=== PATIENT | male | born 1980 | race Caucasian/White ===

== ENCOUNTER 2016-05-20 11:47 | Emergency (ER) | payer SELFPAY ==
[~2016-05-20] VITALS: Ht 182.9 cm; Wt 100.0 kg
[~2016-05-20 11:47] MED LIST: AUGM875T PO; IBUP800T23 PO
[2016-05-20 11:50] VITALS: BP 156/80; PULSE 84; RESP 12; TEMP 98.3; O2SAT 97
--- NOTE | 2016-05-20 12:39 | PD ---
HPI Chief Complaint: Skin Problem Time Seen by Provider: 12:38 Travel History International Travel<30 days: No Contact w/Intl Traveler<30days: No Traveled to known affect area: No History of Present Illness HPI 35-year-old male with PMH of GERD and anxiety presents to the ED for evaluation of 3 day history of warm, erythematous, swollen bump on the anterior neck. Gradual onset. Patient states that he applied warm compresses, poked the area with a needle with no improvement of symptoms. Denies previous history of abscess or IVDA. Denies fevers, chills. Denies chronic health problems. Takes no daily medications. NKDA. PFSH Past Medical History Autoimmune Disease: No Blood Disorders: No Anxiety: Yes Cancer: No Cardiovascular Problems: No Chemotherapy: No Diminished Hearing: No Endocrine: No Gastrointestinal Disorders: Yes (HX GALLSTONES) GERD: Yes Genitourinary: No Immune Disorder: No Musculoskeletal: Yes (previous left knee injury ) Neurologic: No Psychiatric: No Reproductive: No Respiratory: No Immunizations Current: Yes Pancreatitis: Yes Seizures: Yes Tetanus Vaccination: < 5 Years Influenza Vaccination: No Past Surgical History Abdominal Surgery: Yes (CHOLECYSTECTOMY ) AICD: No Arteriovenous Shunt: No Cholecystectomy: Yes Insulin Pump: No Joint Replacement: No Pacemaker: No Other Surgery: Yes Social History Alcohol Use: No Tobacco Use: No Substance Use: Yes (MARIJUANA) Allergies-Medications (Allergen,Severity, Reaction): Coded Allergies: No Known Allergies (Verified , 05/20/16) Reported Meds & Prescriptions Reported Meds & Active Scripts Active Keflex (Cephalexin) 500 Mg Cap 500 Mg PO Q6H Bactrim DS (Sulfamethoxazole-Trimethoprim) 800-160 Mg Tab 1 Tab PO BID Review of Systems Except as stated in HPI: all other systems reviewed are Neg Physical Exam Narrative GENERAL: Well-nourished, well-developed white male in no acute distress. SKIN: Warm and dry. Multiple tattoos. SKIN: There is an indurated area in the left medial collarbone which measures about 2 cm in diameter. It is fluctuant but there is no pointing or drainage. There is a zone of inflammation around it but no lymphangitis. HEAD: Normocephalic. EYES: No scleral icterus. No injection or drainage. NECK: Supple, trachea midline. No JVD or lymphadenopathy. CARDIOVASCULAR: Regular rate and rhythm without murmurs, gallops, or rubs. RESPIRATORY: Breath sounds equal bilaterally. No accessory muscle use. GASTROINTESTINAL: Abdomen soft, non-tender, nondistended. MUSCULOSKELETAL: No cyanosis, or edema. BACK: Nontender without obvious deformity. No CVA tenderness. Data Data Last Documented VS Vital Signs Date Time Temp Pulse Resp B/P Pulse Ox O2 Delivery O2 Flow Rate FiO2 05/20/16 11:50 98.3 84 12 156/80 97 Room Air Orders Wound Culture And Gram Stain (05/20/16 12:43) Lidocai-Epi 1%-1:100,000 Inj (Xylocaine- (05/20/16 12:45) Tetanus/Diphtheria Tox Adult (Tetanus/Di (05/20/16 12:45) MDM Medical Decision Making Medical Screen Exam Complete: Yes Emergency Medical Condition: Yes Differential Diagnosis Furuncle versus carbuncle versus abscess versus cellulitis versus other Narrative Course 35-year-old male with PMH of GERD and anxiety presents to the ED for evaluation of 3 day history of warm, erythematous, swollen bump on the anterior neck. Gradual onset. Patient states that he applied warm compresses, poked the area with a needle with no improvement of symptoms. Denies previous history of abscess or IVDA. Denies fevers, chills. Vitals reviewed. Physical exam reveals a nontoxic-appearing white male in no acute distress. Multiple tattoos. There is a abscess over the medial left clavicle. Mildly fluctuant. No drainage. Abscess I&D was performed. Please see my procedure note for details. Tetanus immunization was updated. Patient was provided prescriptions for Bactrim and Keflex. We discussed wound care, reasons to return to the ED. He indicated understanding of the instructions, is amenable to plan of care. He stable and discharged home. Procedures Procedure Narrative INCISION AND DRAINAGE OF ABSCESS: The area was prepped and was sterilely draped. A subcutaneous wheal of 1 % Xylocaine with epinephrine with a total number to mL was used to anesthetize the area properly. A number 11 scalpel was used to make a 1-cm incision across the area of the abscess. The abscess was drained, complex loculations were broken down, and irrigated with normal saline. Cultures were obtained. Sterile dressing applied. Patient advised to have packing removed in two days. Diagnosis Primary Impression: Abscess Referrals: Primary Care Physician Patient Instructions: Abscess Incision and Drainage (ED), General Instructions Additional Instructions: Rest, hydrate. Keep the dressing that was applied today for the next 24 hours. After that wash the wound normally, allow to air dry before reapplying a clean, dry dressing. Take all antibiotic as prescribed, even if symptoms resolve. Pktc-pod-catorft anti-inflammatories as needed. Follow-up with primary care provider in one week. Return to the ED for any urgent or emergent medical condition. Med/Other Pt SpecificInfo: Prescription(s) given Scripts Cephalexin (Keflex)500 Mg [id number] Mg PO Q6H #40 CAP Ref 0 Prov:Matt Lopez MD 05/20/16 Sulfamethoxazole-Trimethoprim (Bactrim DS)800-160 Mg Tab1 Tab PO BID #14 TAB Ref 0 Prov:Matt Lopez MD 05/20/16 Disposition: 01 DISCHARGE HOME Condition: Stable Aleksandra Werner May 20, 2016 12:39
[2016-05-20] MEDS ORDERED: LIDOCAINE 1%/EPINEPHrine 1:100,000 SOLN 20 ML VIAL INFIL ONE (12:45)
[2016-05-20] MEDS ORDERED: TETANUS/DIPHTHERIA TOXOID ADULT 0.5 ML VIAL IM ONE (12:45)
[2016-05-20] MEDS ORDERED: CEPH-460 PO (13:27)
[2016-05-20] MEDS ORDERED: BACT800T5 PO (13:27)
== END 2016-05-20 13:49 | disposition home or self-care (01) ==
LOC: NETRI 11:47
DX: L02.11 Cutaneous abscess of neck (principal); B95.62 Methicillin resistant Staphylococcus aureus infection as the cause of diseases classified elsewhere; Z23 Encounter for immunization
CPT/HCPCS: 10060; 86403; 87070; 87186; 87205; 90471; 90714

== ENCOUNTER 2017-04-28 20:28 | Emergency (ER) | payer SELFPAY ==
[~2017-04-28] VITALS: Ht 182.9 cm; Wt 91.0 kg
[~2017-04-28 20:28] MED LIST changes: -AUGM875T PO; +BACT800T5 PO; +CEPH-460 PO; -IBUP800T23 PO
[2017-04-28 20:30] VITALS: BP_SYST 159; PULSE 78; RESP 16; TEMP 97.8; O2SAT 98
--- NOTE | 2017-04-28 22:06 | PD ---
HPI Chief Complaint: ENT Complaint Time Seen by Provider: 21:48 Travel History International Travel<30 days: No Contact w/Intl Traveler<30days: No Traveled to known affect area: No History of Present Illness HPI Patient is a 36 year old male who comes in complaining of nasal congestion, ear pressure, cough for about a month. He says he thought he was getting better, but last night he developed a sore throat and his symptoms seemed to return. 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 He denies fever or chills. He has tried over the counter medications with minimal relief. He denies SOB or chest pain. PFSH Past Medical History Autoimmune Disease: No Blood Disorders: No Anxiety: Yes Cancer: No Cardiovascular Problems: No Chemotherapy: No Diminished Hearing: No Endocrine: No Gastrointestinal Disorders: Yes (HX GALLSTONES) GERD: Yes Genitourinary: No Immune Disorder: No Musculoskeletal: Yes (previous left knee injury ) Neurologic: No Psychiatric: No Reproductive: No Respiratory: No Immunizations Current: Yes Pancreatitis: Yes Seizures: Yes Past Surgical History Abdominal Surgery: Yes (CHOLECYSTECTOMY ) AICD: No Arteriovenous Shunt: No Cholecystectomy: Yes Insulin Pump: No Joint Replacement: No Pacemaker: No Other Surgery: Yes Social History Alcohol Use: No Tobacco Use: No Substance Use: Yes (MARIJUANA) Allergies-Medications (Allergen,Severity, Reaction): Coded Allergies: No Known Allergies (Verified Adverse Reaction, Unknown, 04/28/17) Reported Meds & Prescriptions Reported Meds & Active Scripts Active Keflex (Cephalexin) 500 Mg Cap 500 Mg PO Q6H Bactrim DS (Sulfamethoxazole-Trimethoprim) 800-160 Mg Tab 1 Tab PO BID Review of Systems General / Constitutional: No: Fever, Chills HENT: Positive: Headaches, Sore Throat, Congestion Cardiovascular: No: Chest Pain or Discomfort Respiratory: Positive: Cough, No: Shortness of Breath Gastrointestinal: No: Nausea, Vomiting Musculoskeletal: No: Myalgias, Edema Skin: No Rash, No Hives, No Change in Pigmentation Neurologic: No: Weakness, Dizziness Physical Exam Narrative GENERAL: Awake and alert, in no acute distress. SKIN: Focused skin assessment warm/dry. No wounds. HEAD: Atraumatic. Normocephalic. EYES: Pupils equal and round. No scleral icterus. ENT: No tonsillar enlargement or exudates. Mucous membranes pink and moist. Cerumen present in both ear canals. CARDIOVASCULAR: Regular rate and rhythm. No murmur appreciated. RESPIRATORY: No accessory muscle use. Clear to auscultation. Breath sounds equal bilaterally. MUSCULOSKELETAL: No obvious deformities. No clubbing. No cyanosis. No edema. NEUROLOGICAL: Awake and alert. No obvious cranial nerve deficits. Motor grossly within normal limits. Normal speech. Data Data Last Documented VS Vital Signs Date Time Temp Pulse Resp B/P (MAP) Pulse Ox O2 Delivery O2 Flow Rate FiO2 04/28/17 21:57 04/28/17 20:30 97.8 78 16 98 Room Air MDM Medical Decision Making Medical Screen Exam Complete: Yes Emergency Medical Condition: Yes Medical Record Reviewed: Yes Differential Diagnosis Influenza vs pneumonia vs URI vs seasonal allergies Narrative Course Patient is a 36-year-old male who comes in complaining of congestion, sore throat, head pressure. Exam shows cerumen in both ears, no acute abnormalities. Patient offered testing, but he says he does not want to wait. I advised that I cannot make sure that he does not have a serious illness without doing some imaging and tests. He says that he will try over-the- counter allergy and decongestant medications and return if needed. Diagnosis Primary Impression: Upper respiratory infection Patient Instructions: Upper Respiratory Infection (ED) Additional Instructions: Try over the counter decongestants, either Claritin D or Zyrtec D. Use Debrox for ear wax removal. Follow up with a primary care doctor. Return to the ED as needed for any worsening symptoms. Disposition: 01 DISCHARGE HOME Condition: Stable Tanisha Oliver MD Apr 28, 2017 22:06
== END 2017-04-28 22:36 | disposition home or self-care (01) ==
LOC: NEPD 20:28
DX: J06.9 Acute upper respiratory infection, unspecified (principal); H61.23 Impacted cerumen, bilateral; R51 Headache; F41.9 Anxiety disorder, unspecified; K21.9 Gastro-esophageal reflux disease without esophagitis; R56.9 Unspecified convulsions; Z87.19 Personal history of other diseases of the digestive system
CPT/HCPCS: 99282

== ENCOUNTER 2017-05-11 19:43 | Emergency (ER) | payer SELFPAY ==
[~2017-05-11] VITALS: Ht 182.9 cm; Wt 88.5 kg
[2017-05-11 20:12] VITALS: BP 135/82; PULSE 80; RESP 16; TEMP 98.8; O2SAT 97
[2017-05-12] MEDS ORDERED: ROBA500T PO (13:40)
[2017-05-12] MEDS ORDERED: IBUP1TAB7 PO (13:40)
[2017-06-13] MEDS ORDERED: HYDR-3288 PO (07:00)
== END 2017-05-11 20:56 | disposition left against medical advice (07) ==
LOC: PHED 19:43 → PHEFT 20:56
DX: Z53.21 Procedure and treatment not carried out due to patient leaving prior to being seen by health care provider (principal)
CPT/HCPCS: 99281

== ENCOUNTER 2017-05-12 13:01 | Emergency (ER) | payer SELFPAY ==
[2017-05-12 13:03] VITALS: BP 136/97; PULSE 80; RESP 16; O2SAT 100
--- NOTE | 2017-05-12 13:19 | PD ---
HPI Chief Complaint: Injury Time Seen by Provider: 13:08 Travel History International Travel<30 days: No Contact w/Intl Traveler<30days: No Traveled to known affect area: No History of Present Illness HPI 36-year-old male presents to the emergency department with complaint of pain from his right arm mid biceps area to his mid forearm area since last night after injuring it while doing jujitsu. He said he heard a "snap." He doesn't know if he tore a muscle or possibly broke a bone. Denies paresthesias, loss of sensation, decreased range of motion of the arm. Reports decreased strength. Pain is worse with rotation at the wrist and complete extension. Has not taken any medication or tried any treatments to relieve his symptoms. Rates pain 10. Describes it as an aching sensation. No known allergies. No primary care provider. Has no other medical complaints. No other modifying factors or associated signs and symptoms. PFSH Past Medical History Autoimmune Disease: No Blood Disorders: No Anxiety: Yes Cancer: No Cardiovascular Problems: No Chemotherapy: No Diminished Hearing: No Endocrine: No Gastrointestinal Disorders: Yes (HX GALLSTONES) GERD: Yes Genitourinary: No Immune Disorder: No Musculoskeletal: Yes (previous left knee injury ) Neurologic: No Psychiatric: No Reproductive: No Respiratory: No Immunizations Current: Yes Pancreatitis: Yes Seizures: Yes Past Surgical History Abdominal Surgery: Yes (CHOLECYSTECTOMY ) AICD: No Arteriovenous Shunt: No Cholecystectomy: Yes Insulin Pump: No Joint Replacement: No Pacemaker: No Other Surgery: Yes Social History Alcohol Use: No Tobacco Use: No Substance Use: Yes (MARIJUANA) Allergies-Medications (Allergen,Severity, Reaction): Coded Allergies: No Known Allergies (Verified Adverse Reaction, Unknown, 05/12/17) Reported Meds & Prescriptions Reported Meds & Active Scripts Active Robaxin (Methocarbamol) 500 Mg Tab 500 Mg PO QID PRN Ibuprofen 800 Mg Tab 800 Mg PO Q6HR PRN Review of Systems Except as stated in HPI: all other systems reviewed are Neg Physical Exam Narrative GENERAL: Well-nourished, well-developed male patient, in no acute distress SKIN: Warm and dry. HEAD: Atraumatic. Normocephalic. EYES: Pupils equal and round. No scleral icterus. No injection or drainage. ENT: Mucosa pink and moist. Airway patent. NECK: Trachea midline. CARDIOVASCULAR: Regular rate. RESPIRATORY: No accessory muscle use. GASTROINTESTINAL: Flat. MUSCULOSKELETAL: Right ice this area appears with a bulge, when compared to the left; biceps area, antecubital area, and proximal forearm are with tenderness on palpation; decreased community outreach manager strength compared to the left; full flexion and extension; without erythema, ecchymosis; minimal edema noted to the right proximal forearm area.. Right upper extremity supple and non-tense with 2 + radial pulse and sensory intact and without erythema. No obvious deformities. No clubbing. No cyanosis. No edema. NEUROLOGICAL: Awake and alert. Oriented 3. No obvious cranial nerve deficits. Motor grossly within normal limits. Normal speech. PSYCHIATRIC: Appropriate mood and affect; insight and judgment normal. Data Data Last Documented VS Vital Signs Date Time Temp Pulse Resp B/P (MAP) Pulse Ox O2 Delivery O2 Flow Rate FiO2 05/12/17 13:03 80 16 136/97 (110) 100 Orders Orders Elbow, Complete (4 Vws) (05/12/17 13:17) Ketorolac Inj (Toradol Inj) (05/12/17 13:30) Orphenadrine Inj (Norflex Inj) (05/12/17 13:30) MDM Medical Decision Making Medical Screen Exam Complete: Yes Emergency Medical Condition: Yes Medical Record Reviewed: Yes Differential Diagnosis Biceps tendon tear, fracture, arm strain Narrative Course 36-year-old male with right arm injury. Suspecting possible biceps tendon tear. I will x-ray the arm to rule out acute findings. Mandatory outpatient referral will be ordered for outpatient follow-up. Toradol and Norflex ordered. Right elbow x-ray ordered. 1345: Right elbow x-ray unremarkable. Patient provided a copy of the x-ray report. Ibuprofen and Robaxin prescribed for home. Mandatory outpatient referral ordered. Instructed Patient to follow up with orthopedic surgeon. Instructed patient to follow up with primary care provider. Patient verbalizes understanding and agreement with treatment plan. Patient is medically cleared and stable for discharge. Discussed reasons to return to the emergency department. Patient agrees with treatment plan. The patients vital signs are stable and the patient is stable for outpatient follow-up and treatment. Patient discharged home, stable and in no acute distress. Diagnosis Primary Impression: Injury of right upper arm Qualified Codes: S49.91XA - Unspecified injury of right shoulder and upper arm , initial encounter Referrals: [facility] Orthopaedic Surgeon Primary Care Physician Patient Instructions: General Instructions Additional Instructions: Ibuprofen or Tylenol as instructed and as needed for pain and information Rest and ice the affected extremity Avoid aggravating activity; increase activity as tolerated Follow-up with orthopedics Follow-up with primary care provider Return to the emergency department immediately with worsening of symptoms Med/Other Pt SpecificInfo: Prescription(s) given Scripts Methocarbamol (Robaxin) 500 Mg Tab 500 MG PO QID Y for MUSCLE SPASM, #30 TAB 0 Refills Prov: Tiffanie Omer 05/12/17 Ibuprofen (Ibuprofen) 800 Mg Tab 800 MG PO Q6HR Y for PAIN, #30 TAB 0 Refills Prov: Tiffanie Omer 05/12/17 Disposition: 01 DISCHARGE HOME Condition: Stable Tiffanie Omer May 12, 2017 13:19
[2017-05-12] MEDS ORDERED: ORPHENADRINE INJ 60 MG/2 ML AMP IM ONE (13:30)
[2017-05-12] MEDS ORDERED: KETOROLAC TROMETHAMINE 60 MG/2 ML (IM) VIAL IM ONE (13:30)
[2017-05-12] MEDS ORDERED: ROBA500T PO (13:40)
[2017-05-12] MEDS ORDERED: IBUP1TAB7 PO (13:40)
--- NOTE | 2017-05-12 13:42 | RADRPT ---
EXAM DATE/TIME: 05/12/2017 13:32 [facility] COMPARISON: No previous studies available for comparison. INDICATIONS : Right elbow pain. Patient injuried right elbow wrestling last night. MEDICAL HISTORY : None. SURGICAL HISTORY : None. ENCOUNTER: Initial ACUITY: 2 days PAIN SCORE: 6/10 LOCATION: Right elbow. FINDINGS: Multiple view examination of the right elbow demonstrates no soft tissue swelling, joint effusion, or fracture. The osseous structures are in normal alignment. Bony mineralization is normal. CONCLUSION: Unremarkable examination of the right elbow. Craig Pollock MD on May 12, 2017 at 13:39 Board Certified Radiologist. This report was verified electronically.
== END 2017-05-12 14:08 | disposition home or self-care (01) ==
LOC: NEPK 13:01
DX: S49.91XA Unspecified injury of right shoulder and upper arm, initial encounter (principal); R56.9 Unspecified convulsions; F41.9 Anxiety disorder, unspecified; F12.90 Cannabis use, unspecified, uncomplicated; X58.XXXA Exposure to other specified factors, initial encounter; Y93.89 Activity, other specified
CPT/HCPCS: 73080; 96372; 99284; J1885; J2360

== ENCOUNTER 2017-05-30 19:03 | Emergency (ER) | payer SELFPAY ==
[~2017-05-30] VITALS: Ht 185.4 cm; Wt 92.1 kg
[~2017-05-30 19:03] MED LIST changes: -BACT800T5 PO; -CEPH-460 PO; +IBUP1TAB7 PO; +ROBA500T PO
[2017-05-30 19:14] VITALS: BP 179/74; PULSE 102; RESP 14; TEMP 98.3; O2SAT 96
--- NOTE | 2017-05-30 20:39 | PD ---
HPI Chief Complaint: Injury Time Seen by Provider: 20:25 Travel History International Travel<30 days: No Contact w/Intl Traveler<30days: No Traveled to known affect area: No History of Present Illness HPI 36-year-old male complains of right arm pain. Patient was seen in emergency room 3 weeks ago with pain to the distal aspect the right upper arm and proximal forearm around the right elbow. X-ray to right elbow was negative acute bony injury. Patient was given prescription for ibuprofen and Robaxin for pain. Patient states the pain got better and get worse again today. Patient states that he got his right arm hyperextended at the elbow today. Patient states that he has sharp severe pain localized to the distal aspect of the right upper arm and proximal right forearm, especially over the ulnar aspect of the proximal right forearm. Patient denies any weakness and numbness distally. PFSH Past Medical History Medical History: Denies Significant Hx Autoimmune Disease: No Blood Disorders: No Anxiety: Yes Cancer: No Cardiovascular Problems: No Chemotherapy: No Diminished Hearing: No Endocrine: No Gastrointestinal Disorders: Yes (HX GALLSTONES) GERD: Yes Genitourinary: No Immune Disorder: No Musculoskeletal: Yes (previous left knee injury ) Neurologic: No Psychiatric: No Reproductive: No Respiratory: No Immunizations Current: Yes Pancreatitis: Yes Seizures: Yes Tetanus Vaccination: < 5 Years Influenza Vaccination: No Past Surgical History Abdominal Surgery: Yes (CHOLECYSTECTOMY ) AICD: No Arteriovenous Shunt: No Cholecystectomy: Yes Insulin Pump: No Joint Replacement: No Pacemaker: No Other Surgery: Yes Social History Alcohol Use: No Tobacco Use: No Substance Use: No (HX but not anymore ) Allergies-Medications (Allergen,Severity, Reaction): Coded Allergies: No Known Allergies (Verified Adverse Reaction, Unknown, 05/12/17) Reported Meds & Prescriptions Reported Meds & Active Scripts Active Flexeril (Cyclobenzaprine HCl) 10 Mg Tab 10 Mg PO TID Mobic (Meloxicam) 15 Mg Tab 15 Mg PO DAILY Robaxin (Methocarbamol) 500 Mg Tab 500 Mg PO QID PRN Ibuprofen 800 Mg Tab 800 Mg PO Q6HR PRN Review of Systems General / Constitutional: No: Fever Eyes: No: Visual changes HENT: No: Headaches Cardiovascular: No: Chest Pain or Discomfort Respiratory: No: Shortness of Breath Gastrointestinal: No: Abdominal Pain Genitourinary: No: Dysuria Musculoskeletal: Positive: Pain Skin: No Rash Neurologic: No: Weakness Psychiatric: No: Depression Endocrine: No: Polydipsia Hematologic/Lymphatic: No: Easy Bruising Physical Exam Narrative GENERAL: Well-nourished, well-developed patient. SKIN: Focused skin assessment warm/dry. HEAD: Normocephalic. EYES: No scleral icterus. No injection or drainage. NECK: Supple, trachea midline. No JVD or lymphadenopathy. CARDIOVASCULAR: Regular rate and rhythm without murmurs, gallops, or rubs. RESPIRATORY: Breath sounds equal bilaterally. No accessory muscle use. GASTROINTESTINAL: Abdomen soft, non-tender, nondistended. MUSCULOSKELETAL: No cyanosis, or edema. BACK: Nontender without obvious deformity. No CVA tenderness. Patient has moderate tenderness on palpation distal aspect the bicep tendon area and proximal forearm over the ulnar aspect of the forearm. Limited range of motion of the right elbow secondary to pain. Sensorimotor function distally intact. Data Data Last Documented VS Vital Signs Date Time Temp Pulse Resp B/P (MAP) Pulse Ox O2 Delivery O2 Flow Rate FiO2 05/30/17 21:15 05/30/17 19:14 98.3 102 14 96 Orders Orders Forearm (2vws) (05/30/17 20:26) Humerus (Min 2vws) (05/30/17 20:26) Ibuprofen (Motrin) (05/30/17 21:15) Splint Or Brace Apply/Monitor (05/30/17 21:05) Ed Discharge Order (05/30/17 21:08) Sling Cradle Arm (05/30/17 ) MDM Medical Decision Making Medical Screen Exam Complete: Yes Emergency Medical Condition: Yes Interpretation(s) Last Impressions Radius/Ulna X-Ray 05/30/172025 Signed Impressions: Service Date/Time: Tuesday, May 30, 2017 20:32 - CONCLUSION: Normal examination for a patient of this age. Eduardo Maldonado MD Humerus X-Ray 05/30/172025 Signed Impressions: Service Date/Time: Tuesday, May 30, 2017 20:32 - CONCLUSION: Normal examination for a patient of this age. Eduardo Maldonado MD Differential Diagnosis Differential diagnosis including bicep tendon injury, fracture, dislocation. Narrative Course 36-year-old male with hyperextension right elbow now with distal right upper arm pain over the bicep tendon and proximal right forearm pain. Sling the right arm. Diagnosis Primary Impression: Injury of tendon of long head of right biceps Qualified Codes: S46.101A - Unspecified injury of muscle, fascia and tendon of long head of biceps, right arm, initial encounter Additional Impression: Sprain of right elbow Qualified Codes: S53.401A - Unspecified sprain of right elbow, initial encounter Patient Instructions: General Instructions Additional Instructions: Take medications as directed for pain. Follow-up with orthopedist. Patient strongly advised to follow-up with orthopedist. No heavy lifting or excessive bending of the right elbow. Med/Other Pt SpecificInfo: Prescription(s) given Scripts Cyclobenzaprine (Flexeril) 10 Mg Tab 10 MG PO TID for Muscle Spasm, #60 TAB 0 Refills Prov: Dawson Trevizo MD 05/30/17 Meloxicam (Mobic) 15 Mg Tab 15 MG PO DAILY for Pain, #30 TAB 0 Refills Prov: Dawson Trevizo MD 05/30/17 Disposition: 01 DISCHARGE HOME Condition: Stable Dawson Trevizo MD May 30, 2017 20:39
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
[2017-05-30] MEDS ORDERED: CYCL10TA PO (21:10)
[2017-05-30] MEDS ORDERED: MOBI15TA PO (21:10)
[2017-05-30] MEDS ORDERED: IBUPROFEN 600 MG TAB PO ONE (21:15)
== END 2017-05-30 21:16 | disposition home or self-care (01) ==
LOC: PHED 19:03 → PHEFT 21:16
DX: S46.101A Unspecified injury of muscle, fascia and tendon of long head of biceps, right arm, initial encounter (principal); S53.401A Unspecified sprain of right elbow, initial encounter; X50.9XXA Other and unspecified overexertion or strenuous movements or postures, initial encounter
CPT/HCPCS: 73060; 73090; 99283

== ENCOUNTER → 2017-06-09 | Outpatient (CLI) | payer SELFPAY ==
[~2017-06-09] MED LIST changes: +CYCL10TA PO; +HYDR-3288 PO; +MOBI15TA PO
--- NOTE | 2017-06-09 17:54 | RADRPT ---
EXAM DATE/TIME: 06/09/2017 17:15 [facility] COMPARISON: No previous studies available for comparison. INDICATIONS : Internal derangement. MEDICAL HISTORY : None. SURGICAL HISTORY : Cholecystectomy. ENCOUNTER: Initial ACUITY: 1 week PAIN SCORE: 5/10 LOCATION: Right elbow. TECHNIQUE: Multiplanar, multisequence MRI examination was performed without contrast. FINDINGS: BONE/CARTILAGE: Bone marrow signal is homogeneous. Articular cartilage signal is within normal limits. TENDONS: There is complete rupture of the biceps tendon from the proximal radius. Musculotendinous retraction is identified. There is approximate 7 cm of separation between the distal tendon at the attachment of the radius. LIGAMENTS: The radial collateral and ulnar collateral ligament complexes are intact. MISCELLANEOUS: No evidence of joint effusion. Ulnar nerve is within normal limits. CONCLUSION: 1. Complete rupture of the biceps tendon with proximal retraction of the musculotendinous junction. T here is approximately 7 cm of separation between the distal tendon to its radial attachment. 2. Otherwise intact elbow. Josr Rawls MD on June 09, 2017 at 17:47 Board Certified Radiologist. This report was verified electronically.
== END ==
LOC: HRAD 15:47
PROVIDERS: ATTEND Orthopaedic Surgery Sports Medicine
DX: M66.829 Spontaneous rupture of other tendons, unspecified upper arm (principal)
CPT/HCPCS: 73221

== ENCOUNTER → 2017-06-13 | Day surgery (SDC) | payer SELFPAY ==
[~2017-06-13] VITALS: Ht 182.9 cm; Wt 94.6 kg
[~2017-06-13] MED LIST changes: +*LABETALOL HCL 100 MG/20 ML VIAL PERIprocedural Use ONLY ONE; +*MEPERIDINE 25 MG INJ VIAL PERIprocedural Use ONLY ONE; +*RESP: ALBUTEROL 2.5 MG/3 ML NEB (PRN) PERIprocedural Use ONLY NEB ONE; +*morphine SULFATE 10 MG/ML PERIprocedure ONLY ONE; +ACETAMINOPHEN 1000 MG/100 ML 100 ML IV ONE; +CHLORHEXIDINE GLUCONATE 2 % 1 PACK (2 CLOTHS) TOPICAL PRN; +CHLORHEXIDINE GLUCONATE 4% SOLN 120 ML BTL TOPICAL SCH; +DEXAMETHASONE SOD PHOS 4 MG/ML VIAL IV ONE; +DO NOT ADM ANY ANTICOAGULANT DRUGS PRN; +GENTAMICIN SULFATE 80 MG/2 ML VIAL ONE; +GLYCOPYRROLATE 1 MG/5 ML SYRINGE IV PUSH ONE; +HYDROmorphone HCL PF 2 MG/ML VIAL ONE; +INSULIN HUMAN REGULAR 1,000 UNITS/10 ML VIAL SQ PRN; +LACTATED RINGER'S 1000 ML INJ 1,000 ML IV ONE; +LACTATED RINGER'S 1000 ML IV PRN; +LIDOCAINE HCL 1% PF 5 ML SYRINGE OTHER ONE; +METOPROLOL TARTRATE 25 MG TAB PO PRN; +MIDAZOLAM HCL 2 MG/2 ML VIAL ONE; +NEOSTIGMINE 5 MG/5 ML SYRINGE IV PUSH ONE; +ONDANSETRON HCL 4 MG/2 ML VIAL IV ONE; +ONDANSETRON HCL 4 MG/2 ML VIAL IV PUSH PRN; +POVIDONE IODINE 5% (ANTISEPSIS KIT) 4 APPLICATIONS EACH NARE PRN; +POVIDONE IODINE 7.5% SCRUB 118 ML BOTTLE TOPICAL SCH; +PROPOFOL 200 MG/20 ML AMP IV ONE; +ROCURONIUM INJ 50 MG/5 ML SYRINGE IV PUSH ONE; +SODIUM CHLORID 0.9% 500 ML IV PRN; +ceFAZolin INJ 1,000 MG VIAL IV ONE
[2017-06-13] MEDS: ceFAZolin 2 GM PREMIX 50 ML IV SCH ×2 (11:12→12:01)
[2017-06-13 15:32] VITALS: BP 156/89; PULSE 78; RESP 22; TEMP 99; O2SAT 98
[2017-06-13] MEDS: ACETAMINOPHEN/HYDROcodone 325 MG/7.5 MG TAB PO PRN ×2 (15:35→15:39)
--- NOTE | 2017-06-14 11:06 | MP ---
cc: RICH POWERS DATE OF SURGERY 06/13/2017 PREOPERATIVE DIAGNOSIS Right distal biceps tendon rupture. POSTOPERATIVE DIAGNOSES Right distal biceps tendon rupture. PROCEDURE Surgical repair right distal biceps tendon rupture. SURGEON Dr. Rich Powers RUBBER TURNER ANGELICA Thorpe ANESTHESIA General ESTIMATED BLOOD LOSS 50 cc TOURNIQUET TIME 0 minutes COMPLICATIONS None IMPLANTS USED Arthrex JUSTIFICATION This patient is a 36-year male who sustained a traumatic injury to the right arm with a complete rupture of the distal biceps tendon. He has had pain, swelling, deformity, and weakness in regards to his condition. Clinical exam, as well as MRI confirmed the above-named findings. The patient was counseled as to the risks, benefits and alternatives to the above-named surgical procedure and he did wish to proceed with surgery. PROCEDURE IN DETAIL A written consent was obtained. The patient identified by name, taken to the operating room, placed supine position and general anesthesia was administered, as well as 2 grams of IV Ancef. The right upper prepped and draped using as Isopropyl alcohol, Hibiclens solution and Chloraprep solution. After a time-out was performed, a transverse incision was made over the distal portion of the antecubital fossa and creased involving the right upper extremity. The fascial layer was opened and proximal dissection was performed. This allowed identification of the distal biceps tendon rupture. The distal end of the tendon at the rupture site shows significant degenerative changes and this was debrided with a 15 blade scalpel. The tendon was then imbricated and fashioned to a diameter of 8 mm and #2 FiberWire whipstitch was placed within the distal portion of the tendon. At this point, a careful dissection was carried down to the level of the radial tuberosity. A guidewire was then drilled bicortically through the radial tuberosity. Subsequently, an 8 mm cannulated reamer was drilled unicortical with a depth of 15 mm. At this point, an Arthrex distal biceps button was used with a suture placed through the button from the biceps tendon. The button was then placed through the transosseous tunnel and exiting the lateral distal cortex. Once secured on a lateral distal cortex, the elbow was flexed and the tendon was then shuttled into the tunnel and into the bone tunnel alternating sliding knots were then secured for a fixation of the tendon which showed good stability. At this point, an Arthrex 7 x 10 mm Bio tenodesis screw was then placed with one suture limb placed through the screw. The patient had very hard bone and initially the screw became locked onto the screwdriver and I had removed this and got a brand new screw. The second screw showed excellent purchase and fixation and advanced within the tunnel. I tested this manually alternating half inch knots were used to secure over the screw for additional backup and fixation. The tendon had good tension and showed good fixation with no pistoning or movement once secured and secured and docked within the tunnel. The surgical wound was thoroughly irrigated with sterile saline solution. The subcutaneous incision was closed with 3-0 Vicryl suture. Skin incisions were closed with Dermabond. Sterile dressings were applied. The patient was placed in a well-padded splint. He tolerated the procedure with no intraoperative complications noted. Anatoly Hatch, physician public health assistant certified, was present during the entire procedure to include patient positioning. It was felt the medical necessity of a physician public health assistant was indicated in this case due to the complexity of the procedure. He assisted with appropriate manipulation of the arm and also retraction of muscle, tendon, bone and neurovascular structures. He assisted with preparation of the tendon, drilling and preparation of bone and also implantation of the tendon and the internal fixation devices for purposes of surgical repair. MD MATT Ellis/ZACHARY /12:53 PM /10:42 AM
== END | disposition home or self-care (01) ==
LOC: HSDC 08:03
PROVIDERS: ATTEND Orthopaedic Surgery Sports Medicine
DX: S46.211A Strain of muscle, fascia and tendon of other parts of biceps, right arm, initial encounter (principal); Y93.75 Activity, martial arts
CPT/HCPCS: 01710; 24342; 86850; 86900; 86901; 94664; C1713; J0131; J0690; J1100; J1170; J1580; J2175; J2250; J2270; J2405; J2710; J3010; J7120; J7613

== ENCOUNTER 2017-08-29 16:40 | Emergency (ER) | payer SELFPAY ==
[2017-08-29] MEDS: LIDOCAINE 1%/EPINEPHrine 1:100,000 SOLN 20 ML VIAL INFIL (19:30)
== END 2017-08-29 19:59 | disposition home or self-care (01) ==
LOC: NEPD 16:40
DX: S70.11XA Contusion of right thigh, initial encounter (principal); F41.9 Anxiety disorder, unspecified; K21.9 Gastro-esophageal reflux disease without esophagitis
CPT/HCPCS: 10060; 87070; 87205; 99283-25